=== PATIENT | male | born 1995 | race Caucasian/White ===

== ENCOUNTER 2016-11-30 21:56 | Inpatient (IN) | payer OTHER ==
--- NOTE | 2016-11-30 22:17 | EDPHY ---
H & P Stated Complaint: abd pain x 2-3 hours, nausea; Hx of pancreatitis with stent HPI/ROS: HPI CHIEF COMPLAINT: Abdominal pain, nausea x2 to 3 hours HISTORY OF PRESENT ILLNESS: This patient very pleasant 21-year-old male, [employer] student, he has significant past medical history for a narrowing in his pancreatic duct. He has had multiple ERCPs with stent placements. History of multiple bouts of pancreatitis. Presents emergency room with nausea and epigastric abdominal pain. Patient reports to me that around 2-3 hours ago he developed epigastric abdominal pain burning in sensation rather severe with associated nausea but no vomiting. He thinks he may have pancreatitis again. Past Medical History: Acute pancreatitis, pancreatic ductal narrowing Past Surgical History: ERCP with multiple pancreatic stents. X4. This is done in [place]. Cholecystectomy. Social History: Denies daily use of drugs alcohol tobacco products., [employer] student Family History: Noncontributory ROS REVIEW OF SYSTEMS: A comprehensive 10 point review of systems is otherwise negative aside from elements mentioned in the history of present illness. Exam Constitutional appears nontoxic thin appearing, triage nursing summary reviewed , vital signs reviewed, awake/alert. Eyes normal conjunctivae and sclera, EOMI, PERRLA. HENT normal inspection, atraumatic, moist mucus membranes, no epistaxis, neck supple/ no meningismus, no raccoon eyes. Respiratory clear to auscultation bilaterally, normal breath sounds, no respiratory distress, no wheezing. Cardiovascular rate normal, regular rhythm, no murmur, no edema, distal pulses normal. Gastrointestinal soft, moderate amount of tenderness in the epigastric region no peritoneal signs, no rebound, no guarding, normal bowel sounds, no distension , no pulsatile mass. Genitourinary no CVA tenderness. Musculoskeletal no midline vertebral tenderness, full range of motion, no calf swelling, no tenderness of extremities, no meningismus, good pulses, neurovascularly intact. Skin pink, warm, & dry, no rash, skin atraumatic. Neurologic awake, alert and oriented x 3, AAOx3, moves all 4 extremities equally, motor intact, sensory intact, CN II-XII intact, normal cerebellar, normal vision, normal speech. Psychiatric normal mood/affect. Heme/Lymph/Immune no lymphadenopathy. Differential diagnosis includes but is not limited to and in no particular order : Bowel obstruction, appendicitis, diverticulitis, colitis, enteritis, perforated viscus, gastritis, GERD, esophagitis, urinary tract infection, pyelonephritis, kidney stones Medical Decision Making: Plan for this patient IV establishment, IV fluid bolus 2 L normal saline, IV Zofran for nausea, IV Dilaudid for pain control. Abdominal labs. Re-evaluate. Re-evaluation: CT scan of the abdomen pelvis with IV contrast The results of the study are this shows no pseudocyst or abscess or necrosis of the pancreas. There is a pancreatic ductal stent. The study was read by Dr. Valdes. I viewed the images myself on the PACS system. 1217AM: This patient has received multiple rounds of IV narcotics including Dilaudid, IV fluids. He is not vomiting. His pain is improved but still present. His lipase is over 20,000. He is receiving his 3rd L fluid here. Patient be admitted to the hospitalist service for acute pancreatitis. CT scan does not show any necrosis abscess or pseudocyst. I spoke with the hospitalist service Dr. Duarte who agrees to admit this patient. Patient is not in shock. Patient hemodynamically stable. Feeling better but still has pain. No vomiting Source: Patient - Personal History Current Tetanus/Diphtheria Vaccine: Yes - Medical/Surgical History Hx Asthma: Yes Hx Chronic Respiratory Disease: No Hx Diabetes: No Hx Cardiac Disease: No Hx Renal Disease: No Hx Cirrhosis: No Hx Alcoholism: No Hx HIV/AIDS: No Hx Splenectomy or Spleen Trauma: No Other PMH: PMHx: reoccurring ideopathic pancreatitis, septic shock. PSHx: GALLBLADDER REMOVED, stent in pancreas - Social History Smoking Status: Never smoked Constitutional: Initial Vital Signs Temperature (C) 36 C 11/30/16 21:59 Heart Rate 93 11/30/16 21:59 Respiratory Rate 24 H 11/30/16 21:59 Blood Pressure 139/64 H 11/30/16 21:59 O2 Sat (%) 100 11/30/16 21:59 O2 Delivery Mode Room Air Allergies/Adverse Reactions: No Known Allergies Allergy (Unverified 12/28/13 20:03) Home Medications: Medication Instructions Recorded ACETAMINOPHEN 11/30/16 Dheeraj Hernandez 3,000 Units Capsule 11/30/16 Nexium 11/30/16 Medical Decision Making - Diagnostics Imaging Results: Imaging Impressions Abdomen CT 11/30/16 23:25 Impression: 1. Status post cholecystectomy. 2. Acute pancreatitis with some peripancreatic and periportal edema, and presence of a pancreatic ductal stent. There is no evidence of pancreatic necrosis, shruti pseudocyst, or peripancreatic abscess. Findings were discussed with Foster Rivas MD at 0:15, on 12/01/2016. - Data Points Laboratory Results: Laboratory Results 11/30/16 22:17 11/30/16 22:17 11/30/16 11/30/16 22:17 22:17 WBC 7.58 10^3/uL 10^3/uL (3.80-9.50) RBC 5.00 10^6/uL 10^6/uL (4.40-6.38) Hgb 15.6 g/dL g/dL (13.7-17.5) Hct 46.3 % % (40.0-51.0) MCV 92.6 fL fL (81.5-99.8) MCH 31.2 pg pg (27.9-34.1) MCHC 33.7 g/dL g/dL (32.4-36.7) RDW 12.9 % % (11.5-15.2) Plt Count 191 10^3/uL 10^3/uL (150-400) MPV 11.3 fL fL (8.7-11.7) Neut % (Auto) 55.7 % % (39.3-74.2) Lymph % (Auto) 36.0 % % (15.0-45.0) [place] % (Auto) 5.4 % % (4.5-13.0) Eos % (Auto) 2.5 % % (0.6-7.6) Baso % (Auto) 0.3 % % (0.3-1.7) Nucleat RBC Rel Count 0.0 % % (0.0-0.2) Absolute Neuts (auto) 4.22 10^3/uL 10^3/uL (1.70-6.50) Absolute Lymphs (auto) 2.73 10^3/uL 10^3/uL (1.00-3.00) Absolute Monos (auto) 0.41 10^3/uL 10^3/uL (0.30-0.80) Absolute Eos (auto) 0.19 10^3/uL 10^3/uL (0.03-0.40) Absolute Basos (auto) 0.02 10^3/uL 10^3/uL (0.02-0.10) Absolute Nucleated RBC 0.00 10^3/uL 10^3/uL (0-0.01) Immature Gran % 0.1 % % (0.0-1.1) Immature Gran # 0.01 10^3/uL 10^3/uL (0.00-0.10) Sodium 141 mEq/L mEq/L (134-144) Potassium 3.3 mEq/L L mEq/L (3.5-5.2) Chloride 102 mEq/L mEq/L (97-110) Carbon Dioxide 23 mEq/l mEq/l (22-31) Anion Gap 16 mEq/L mEq/L (8-16) BUN 15 mg/dL mg/dL (7-23) Creatinine 1.1 mg/dL mg/dL (0.7-1.3) Estimated GFR > 60 Glucose 92 mg/dL mg/dL (70-100) Calcium 10.3 mg/dL mg/dL (8.5-10.4) Total Bilirubin 0.6 mg/dL mg/dL (0.1-1.4) Conjugated Bilirubin 0.2 mg/dL mg/dL (0.0-0.5) Unconjugated Bilirubin 0.4 mg/dL mg/dL (0.0-1.1) AST 26 IU/L IU/L (17-59) ALT 30 IU/L IU/L (21-72) Alkaline Phosphatase 65 IU/L IU/L (38-126) Total Protein 8.2 g/dL g/dL (6.3-8.2) Albumin 5.1 g/dL H g/dL (3.5-5.0) Lipase > 33337 IU/L H IU/L (23-300) Medications Given: Discontinued Medications Hydromorphone HCl (Dilaudid) 0.5 mg IVP EDNOW ONE Stop: 11/30/16 22:19 Last Admin: 11/30/16 22:27 Dose: 0.5 mg Hydromorphone HCl (Dilaudid) 1 mg IVP EDNOW ONE Stop: 11/30/16 22:49 Last Admin: 11/30/16 22:58 Dose: 1 mg Sodium Chloride (Ns) 1,000 mls @ 0 mls/hr IV EDNOW ONE; Wide Open PRN Reason: Protocol Stop: 11/30/16 22:19 Last Admin: 11/30/16 22:27 Dose: 1,000 mls Sodium Chloride (Ns) 1,000 mls @ 0 mls/hr IV ONCE ONE PRN Reason: Wide Open Stop: 11/30/16 23:08 Last Admin: 11/30/16 23:19 Dose: 1,000 mls Ondansetron HCl (Zofran) 4 mg IVP EDNOW ONE Stop: 11/30/16 22:19 Last Admin: 11/30/16 22:27 Dose: 4 mg Departure - Departure Disposition: [facility] In[facility] Acute Clinical Impression: Pancreatitis Qualifiers: Chronicity: acute Pancreatitis type: other Acute pancreatitis complication: unspecified Qualified Code(s): K85.80 - Other acute pancreatitis without necrosis or infection Condition: Fair Referrals: NONE *PRIMARY CARE P,. [Primary Care Provider] - As per Instructions
[2016-11-30] MEDS ORDERED: ONDANSETRON 4 MG/2 ML VIAL IVP ONE (22:18)
[2016-11-30] MEDS ORDERED: NS 1,000 ML IV ONE ×2 (22:18→23:07)
[2016-11-30] MEDS ORDERED: HYDROmorphONE/DILAUDID 1 MG/ML INJ IVP ONE ×2 (22:18→22:48)
[2016-11-30 22:24] LABS: % IMMATURE GRANULYOCYTES 0.1 % (0.0-1.1); ABSOLUTE IMMATURE GRANULOCYTES 0.01 10^3/uL (0.00-0.10); ADD DIFF? NO; ADD MORPH? NO; ADD SCAN? NO; ATYPICAL LYMPHOCYTE FLAG 10 (0-99); FRAGMENT RBC FLAG 0 (0-99); HEMATOCRIT 46.3 % (40.0-51.0); HEMOGLOBIN 15.6 g/dL (13.7-17.5); LEFT SHIFT FLG 0 (0-99); LIPEMIA HEMOLYSIS FLAG 80 (0-99); MEAN CELL HEMOGLOBIN 31.2 pg (27.9-34.1); MEAN CELL HEMOGLOBIN CONCENTR. 33.7 g/dL (32.4-36.7); MEAN CELL VOLUME 92.6 fL (81.5-99.8); MEAN PLATELET VOLUME 11.3 fL (8.7-11.7); PLATELET CLUMPS FLAG 0 (0-99); PLATELET COUNT 191 10^3/uL (150-400); RED CELL DISTRIBUTION WIDTH 12.9 % (11.5-15.2)
[2016-11-30 22:35] LABS: ALANINE AMINOTRANSFERASE 30 IU/L (21-72); ALBUMIN 5.1 g/dL (3.5-5.0); ALKALINE PHOSPHATASE 65 IU/L (38-126); ANION GAP 16 mEq/L (8-16); ASPARTATE AMINOTRANSFERASE 26 IU/L (17-59); BILIRUBIN,TOTAL 0.6 mg/dL (0.1-1.4); BILIRUBIN-CONJUGATED 0.2 mg/dL (0.0-0.5); BILIRUBIN-UNCONJUGATED 0.4 mg/dL (0.0-1.1); CALCIUM 10.3 mg/dL (8.5-10.4); CARBON DIOXIDE 23 mEq/l (22-31); CHLORIDE 102 mEq/L (97-110); CREATININE 1.1 mg/dL (0.7-1.3); GLOMERULAR FILTRATION RATE > 60; GLUCOSE 92 mg/dL (70-100); POTASSIUM 3.3 mEq/L (3.5-5.2); SODIUM 141 mEq/L (134-144); TOTAL PROTEIN 8.2 g/dL (6.3-8.2)
[2016-11-30] MEDS ORDERED: IOPAMIDOL (ISOVUE-300) 100 ML BTL ONE (23:34)
[2016-12-01] MEDS ORDERED: HYDROmorphONE/DILAUDID 1 MG/ML INJ ONE (00:02)
[2016-12-01] MEDS ORDERED: HYDROmorphONE/DILAUDID 1 MG/ML INJ IVP ONE (00:10)
[2016-12-01] MEDS ORDERED: NS 1,000 ML IV ONE (00:20)
[2016-12-01] MEDS ORDERED: ONDANSETRON 4 MG/2 ML VIAL IVP PRN (01:30)
[2016-12-01] MEDS ORDERED: PROMETHAZINE HCL 25 MG/ML INJ IVP PRN (01:30)
[2016-12-01] MEDS ORDERED: HYDROmorphONE/DILAUDID 1 MG/ML INJ IVP PRN (01:30)
[2016-12-01] MEDS ORDERED: NALOXONE HCL 0.4 MG/ML INJ IVP PRN (01:34)
[2016-12-01] MEDS ORDERED: HYDROmorphONE/DILAUDID 6 MG/30 ML PCA IV PRN (01:34)
[2016-12-01 01:35] LABS: COLOR PALE YELLOW; LEUKOCYTE ESTERASE,URINE NEGATIVE (NEGATIVE); NITRITE,URINE NEGATIVE (NEGATIVE)
[2016-12-01] MEDS ORDERED: DIAZEPAM 10 MG/2 ML SYR IVP PRN (01:36)
[2016-12-01] MEDS: NS 1,000 ML IV SCH ×3 (01:52→17:48)
[2016-12-01] MEDS ORDERED: PROTOCOL MAGNESIUM 1 DOSE IV PRN (03:16)
[2016-12-01] MEDS ORDERED: PROTOCOL POTASSIUM 1 DOSE MISC PRN (03:16)
[2016-12-01] MEDS ORDERED: PANTOPRAZOLE SODIUM 40 MG in NS 100 ML IV SCH ×2 (03:30→04:00)
--- NOTE | 2016-12-01 04:24 | GHP ---
[f rep st] HISTORY AND PHYSICAL DATE OF ADMISSION: 12/01/2016 PCP: In [place], is yet to establish locally. SOURCE: Patient provides history. A little bit somnolent, but otherwise appropriate and appears rel iable. Case discussed with ED provider and EMR reviewed. CHIEF COMPLAINT: Abdominal pain, nausea. 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 Patient reports that his primary GI care is completed in [place] at [facility] with Dr. Donnelly. Patient has had 4 ERCPs with stent placements and a history of a cholecystectomy. He does not have any history of alcohol use. Patient reports that over the summer he has lost appro ximately 20 pounds secondary to dietary restrictions related to worsening symptoms of pancreatitis. Over the last several days, however, the patient reports that he is feeling quite well, and today he had a larger fatty meal with a burrito. Patient shortly after developed increasing nausea and epigas tric pain that was sharp in nature. Patient states that he felt like somebody was cutting him in lai f. Patient had been trying to take some pain medications at home without improvement of his symptoms and severity worsened, and so he came to the emergency department concerned that he was developing a recurrence of pancreatitis. REVIEW OF SYSTEMS: GENERAL: Patient denies any fevers or chills. SKIN: No rashes or sores. ENT: No congestion, sore throat. CV: No chest pain. No palpitations. Patient does report some reflux burning symptoms. RESPIRATORY: Patient notes some increased dyspnea after administration of Dilaudi d, but no cough. GI: See HPI. Additionally, patient has noted that his stools have been increasing ly pale and almost waters in color, but no diarrhea, melena, or hematochezia. : No dysuria or hemat uria. MUSCULOSKELETAL: Patient reports some myalgias, mild muscle aching, but he admits that he had a more intense workout completed in the last few days secondary to training. NEURO: Patient denies any headache. No numbness or tingling. PSYCH: Patient without any anxiety or depression. ALLERGIES: No known drug allergies. HOME MEDICATIONS: Creon, Tylenol, and Nexium. PAST MEDICAL HISTORY: Significant for recurrent pancreatitis with history of stricture or stenosis o f pancreatic duct. Significant weight loss in the last several months and history of GERD. PAST SURGICAL HISTORY: Significant for ERCP with stenting x4 and a cholecystectomy. FAMILY HISTORY: Significant for mother with diabetes type 2. No other family member with pancreatic issues. SOCIAL HISTORY: Patient is a [employer] student. He originates from [place]. He travels back home in [place]. He does not smoke, drink, or do drugs. He is a fairly active young gentleman. CODE STATUS: Full. PHYSICAL EXAMINATION: VITAL SIGNS: On arrival to the emergency department, blood pressure is 139/64 , heart rate 93, respiratory rate 24, O2 sat 100% on room air with a temperature of 36. Vitals on th e floor: Blood pressure 108/50, heart rate 84, respiratory rate 16, O2 sat 97% on 2 L by nasal cannu la. GENERAL: No acute distress. Patient is lying very still in bed, cradles abdomen. He is a meghna le bit somnolent after receiving Dilaudid, but he does wake to name. He is very cooperative, but pierre s appear intermittently to grimace. He does appear thin build. SKIN: No rashes or apparent sores. ENT: Mucous membranes appear dry. No nasal discharge. NECK: Supple. Trachea midline. CV: Regu lar rate and rhythm. No murmurs, rubs, or gallops. RESPIRATORY: Unlabored breathing. Lungs are cl ear to auscultation bilaterally. No wheezes, rales, or rhonchi. ABDOMEN: Is nondistended but soft but significantly tender to palpation, greatest in the epigastrium and left upper quadrant. The adan ent does complain of some pain with palpitation to the mid abdomen, as well. Bowel sounds hypoactive . : No suprapubic tenderness to palpation. No Junior in place. MUSCULOSKELETAL: Patient moves a ll extremities. Strength grossly normal. NEURO: No focal findings. No facial drooping. Moves all extremities. PSYCH: Patient pleasant, cooperative. Affect appropriate for stated mood. LABORATORY DATA: WBC 7.58, H and H 15.6 and 46.3, MCV of 92.6, platelet count 191. Sodium is 141, p otassium is 3.3, chloride 102, CO2 is 23, BUN 15, creatinine 1.1, glucose is 92. Total bilirubin is 0.6, ALT 30, AST 26, alkaline phosphatase 65, total protein 8.2, albumin is 5.1, lipase greater than 20,000. UA: Specific gravity of 1.021 with pH of 7.0, otherwise, negative. IMAGING DATA: CT abdomen and pelvis: Report reviewed myself. Limited views. Unavailable image vega ramsey Impression: Status post cholecystectomy. Acute pancreatitis with some peripancreatic and lynn portal edema and presence of pancreatic ductal stent. No evidence pancreatic necrosis, pseudocyst, o r abscess. ASSESSMENT AND PLAN: This is a pleasant 21-year-old with an unfortunate history of recurrent pancrea titis, now presents complaining of acute on chronic epigastric pain. 1. Pancreatitis, acute. Patient will be placed on IV fluids with aggressive IV fluid hydration. He will be made n.p.o. He is not currently having any active emesis and does not currently require NG tube placement. Patient does have a longstanding history of pancreatic duct stricture with history o f stent placements. Will try to obtain some records from [place] where patient had a recent stent put in over the summer. Further discussion with GI in the morning and repeat lipase and amylase. 2. Abdominal pain. Patient reports that Dilaudid is just making him sleepy at this point, but no si gnificant improvement in his pain. He does fall asleep during the interview. Patient's pain has bee n difficult to control, and a CERTIFIED FIRE INVESTIGATOR has been ordered. Also, add on Valium p.r.n. Nausea at this time c ontrolled. Zofran and Phenergan available p.r.n. 3. Hypokalemia. Will plan to replace IV while n.p.o. 4. Gastroesophageal reflux disease. Patient reporting exacerbation of his reflux symptoms. Will gi ve a dose of IV Protonix and continue this on a daily basis. Patient is not sure, but he states that he may have an ulcer gastritis based on previous ERCP. 5. History of weight loss. Patient's BMI is 21 with notable weight loss of 20 pounds. Patient will remain n.p.o. for now given his acute pancreatitis but will place a dietary consultation to assist w ith dietary recommendations for the patient after discharge. Reviewed with patient recommendation to consider small low-fat meals once his pancreatitis is stabilized. 6. Fluids, electrolytes, and nutrition. Continue with IV fluids. Electrolyte replacement p.r.n. as above. 7. Nutrition. Patient will be n.p.o. 8. Prophylaxis. SCDs. Holding anticoagulation at this time pending further followup and discussion with GI. 9. Code status. Full. DISPOSITION: Patient admitted to inpatient status on PCU given heightened pain management needs. /[id number]/MODL
[2016-12-01 05:58] LABS: % IMMATURE GRANULYOCYTES 0.3 % (0.0-1.1); ABSOLUTE IMMATURE GRANULOCYTES 0.03 10^3/uL (0.00-0.10); ADD DIFF? NO; ADD MORPH? NO; ADD SCAN? NO; ATYPICAL LYMPHOCYTE FLAG 10 (0-99); FRAGMENT RBC FLAG 0 (0-99); HEMATOCRIT 36.4 % (40.0-51.0); HEMOGLOBIN 11.9 g/dL (13.7-17.5); LEFT SHIFT FLG 0 (0-99); LIPEMIA HEMOLYSIS FLAG 80 (0-99); MEAN CELL HEMOGLOBIN 31.3 pg (27.9-34.1); MEAN CELL HEMOGLOBIN CONCENTR. 32.7 g/dL (32.4-36.7); MEAN CELL VOLUME 95.8 fL (81.5-99.8); MEAN PLATELET VOLUME 11.4 fL (8.7-11.7); PLATELET CLUMPS FLAG 10 (0-99); PLATELET COUNT 126 10^3/uL (150-400)
[2016-12-01 06:14] LABS: ALANINE AMINOTRANSFERASE 23 IU/L (21-72); ALBUMIN 3.3 g/dL (3.5-5.0); ALKALINE PHOSPHATASE 40 IU/L (38-126); AMYLASE 1087 IU/L (30-110); ANION GAP 10 mEq/L (8-16); ASPARTATE AMINOTRANSFERASE 18 IU/L (17-59); CALCIUM 8.3 mg/dL (8.5-10.4); CARBON DIOXIDE 21 mEq/l (22-31); CHLORIDE 109 mEq/L (97-110); GLOMERULAR FILTRATION RATE > 60; GLUCOSE 113 mg/dL (70-100); MAGNESIUM 1.7 mg/dL (1.6-2.3); POTASSIUM 4.4 mEq/L (3.5-5.2); SODIUM 140 mEq/L (134-144); TOTAL PROTEIN 5.5 g/dL (6.3-8.2)
[2016-12-01] MEDS ORDERED: MAGNESIUM SULF 1 GM/DEXTROSE 100 ML IV ONE (08:13)
[2016-12-01 16:06] VITALS: RESP 16
--- NOTE | 2016-12-01 17:20 | PDDCSUM ---
Discharge Summary Discharge Summary: DISCHARGE SUMMARY FOLLOW-UP ITEMS: Establish primary care in [place] DATE OF ADMISSION: 12/01/2016 DATE OF DISCHARGE: 12/01/2016 DISCHARGE DIAGNOSES: 1. Acute pancreatitis CONSULTATIONS: Priscilla guerra with Gastroenterology, Dr. Jaden Velazquez PROCEDURES / IMAGING: CT of the abdomen demonstrating peripancreatic stranding, no abscess, stent in place CHIEF COMPLAINT: Acute abdominal pain SUBJECTIVE: Ongoing abdominal pain, controlled with HEAD BAGGAGE PORTER PHYSICAL EXAM ON DISCHARGE: Systolic blood pressure is 97, heart rate 82, afebrile, abdomen is soft, moderately tender to mild palpation in the upper half, voluntary guarding, rebound LABS ON DISCHARGE: Lipase 7900, white blood cell count 64858, hemoglobin 11.9, urinalysis unremarkable, creatinine 1.0, potassium 4.4 HOSPITAL COURSE BY PROBLEM: The patient presented with acute pancreatitis evidenced by lipase of greater than 20,000, peripancreatic stranding on CT, clinical symptoms consistent with pancreatitis, unclear whether this was exacerbated by fatty meal versus recurrent pancreatic stricture. The patient began experiencing pancreatitis in 2013, while he was living in [place], and at that time, GI of the [facility] recommended that he pursue specialty care at [facility]. The patient ultimately pursued care in his home state of [place], where he has been a patient of Dr. Donnelly. The patient's pancreatitis is not believed to be secondary to alcohol, and his previous labs demonstrate that is not secondary to autoimmune pancreatitis either. It is believed to be 2/2 pancreatic strictures, requiring pancreatic duct stent placement. He has had recurrent episodes over the past couple months, including instent occlusion, with the most recent stent replacement occurring on 11/09/2016. At that time, the patient did not have any overt evidence of stricture, they did have some ductal contour irregularities and the ERCP was performed in the context of acute pancreatitis episode. The patient's condition was stabilized [facility] with IV fluids, NPO status, Dilaudid HEAD BAGGAGE PORTER. His lipase level declined 7900 , and he was symptomatically improving. That being said, I discussed patient's case with Dr. Jaden Velazquez, and we both agree that the patient may receive more optimal care at [facility] where he has access to GI consultation over the weekend with procedural issue performed ERCPs with pancreatic interventions. The patient and his mother have elected for transfer, and I discussed patient's case with Dr. Vish Hightower at [facility], as well as the hospitalist, Dr. Cornel Castellon. We have agreed to transfer the patient onto the hospitalist service, where he will receive GI consultation. DISCHARGE MEDICATIONS: Please see official discharge medication reconciliation sheet in chart , continue all inpatient medications. DISCHARGE INSTRUCTIONS: Please establish outpatient primary care after your [facility] hospitalization. TIME SPENT: Greater than 30 minutes were spent on direct patient care, as well as discharge planning and preparation.
--- NOTE | 2016-12-01 17:32 | ASMTCMCOM ---
CM Note CM Note Notes: Today hospitalist states Pt. needs to transfer to [facility] in [place] for an ERCP w/ pancreatic stent. SWer called Transfer Center at to begin process w/ May. EMTALA form started by hospitalist. Hospitalist states he will deliver EMTALA form to RN when he is done with it. SWer educated e commerce marketing analyst and [employer] about EMTALA process. SWer made envelope packet with reports. ordered images disc. Gave [facility] number to . Gave number for transfer center at [facility] to [place] . Await MD to MD, RN to RN, and room number assignment before [facility] can transfer. Date Signed: 12/01/2016 05:29 PM Electronically Signed By:Risa Welch LCSW
[2016-12-01 19:46] VITALS: BP 106/57; PULSE 92; TEMP 101.8; O2SAT 99
== END 2016-12-01 20:35 | disposition short-term general hospital (02) | DRG 440 ==
LOC: F2W 12-01 01:14 → F3E 12-01 14:15
PROVIDERS: ADMIT Family Medicine; ATTEND Internal Medicine
DX: K85.90 Acute pancreatitis without necrosis or infection, unspecified (principal); E87.6 Hypokalemia; K21.9 Gastro-esophageal reflux disease without esophagitis; Z83.3 Family history of diabetes mellitus
CPT/HCPCS: 96374; J1170; J2405; J2550; J3475; Q9967